=== PATIENT | female | born 1995 | race Caucasian/White ===

== ENCOUNTER 2017-05-24 10:53 | Emergency (ER) | payer BC ==
[~2017-05-24] VITALS: Ht 165.1 cm; Wt 59.0 kg
--- NOTE | 2017-05-24 11:10 | NUR ---
PT WALKED INTO ER A&OX4, C/O R INDEX FINGER LACERATION FROM LAST NIGHT WHILE CUTTING APPLES. PT CO PAIN 04/08, PER PT IT HASNT BLED SINCE I PUT BANDAGES ON IT LAST NIGHT, NO ACTIVE BLEEDING NOTED ON ASSESSMENT, FINGER CURRENTLY SOAKING IN IODINE BATH. AWAITING MD LANG. WILL CONT TO MONITOR
[2017-05-24] MEDS ORDERED: TDAP [DIPH/PERTUSSIS/TET] 0.5 ML VIAL IM ONE ×2 (11:50→12:00)
--- NOTE | 2017-05-24 12:05 | NUR ---
Patient discharged to home in stable condition. Written and verbal after care instructions given. Patient verbalizes understanding of instruction.
[2017-05-24 12:08] VITALS: BP 128/68
== END 2017-05-24 12:09 | disposition home or self-care (01) ==
LOC: ER 10:59
DX: S61.211A Laceration without foreign body of left index finger without damage to nail, initial encounter (principal); Z88.5 Allergy status to narcotic agent; W26.0XXA Contact with knife, initial encounter; Y93.89 Activity, other specified; Y92.89 Other specified places as the place of occurrence of the external cause; Y99.9 Unspecified external cause status
CPT/HCPCS: 29130; 90471; 90715; 99283; A4606; A6402; Z7610